=== PATIENT | female | born 1970 | race Caucasian/White ===

== ENCOUNTER → 2016-09-22 | Outpatient (CLI) | payer OTHER ==
--- NOTE | 2016-09-22 10:14 | DIAGNOSTIC IMAGING REPORT ---
PROCEDURE: US COMPLETE PELVIC W/TRANSVAG INDICATION: MENORRHAGIA,DYSMENORRHEA TECHNIQUE: Transabdominal and endovaginal vargas scale and color Doppler sonographic images of the female pelvis were obtained. COMPARISON: CT abdomen pelvis 09/07/2012 and pelvic ultrasound 09/23/2003. FINDINGS: TRANSABDOMINAL SCANS: Normal kidneys. Anteverted uterus. TRANSVAGINAL SCANS: The uterus measures 7 x 6.2 x 3.5 cm. There is a 1.4 cm hypoechoic anterior midline intramuscular probable fibroid. Normal endometrium measures 1 cm. Left ovary measures 2.8 x 2 x 1.9 cm. Right ovary measures 4.3 x 3.7 x 2.4 cm with a 3 cm simple cyst. Vascular flow to both ovaries. No adnexal mass or free fluid in the cul-de-sac. IMPRESSION: 1. 1.4 cm fibroid 2. 3 cm simple right ovarian cyst.
== END ==
LOC: US SRH 09:00
DX: D25.9 Leiomyoma of uterus, unspecified (principal); N83.201 Unspecified ovarian cyst, right side